=== PATIENT | female | born 1955 | race Two or more races ===

== ENCOUNTER 2017-03-28 07:00 | Day surgery (SDC) | payer OTHER ==
[~2017-03-28 07:00] MED LIST: ASPIR 8181 MG; BITREX PO; ENOXAPARIN40 MG/0.4; GLYCOTROL CAPS1 EACH IM; INTESTINEX680 MG; LOSARTAN POTASS50 MG; OXICONAZOLE NIT30 GM; POLY119PG; SIMVASTATIN40 MG
== END 2017-03-28 13:00 | disposition home or self-care (01) ==
LOC: AMB-ENDOS 07:00
DX: K57.30 Diverticulosis of large intestine without perforation or abscess without bleeding (principal); K64.1 Second degree hemorrhoids

== ENCOUNTER 2017-04-24 14:02 | Inpatient (IN) | payer OTHER ==
[~2017-04-24] VITALS: Ht 149.9 cm; Wt 70.3 kg
[2017-04-24] MEDS ORDERED: ZOCOR20 MG PO (14:47)
[2017-04-24] MEDS ORDERED: SINGULAIR10 MG PO (14:48)
[2017-04-24] MEDS ORDERED: ECOTRIN81 MG PO (14:48)
[2017-04-24] MEDS ORDERED: NEURIN (14:49)
[2017-04-24] MEDS ORDERED: MAXIMUM D310000 UNIT PO (14:49)
[2017-04-24] MEDS ORDERED: ALBUTEROL0.63 MG/3 IH (14:50)
[2017-04-24] MEDS ORDERED: CIPRO PO (14:50)
== END 2017-05-02 16:01 | disposition home or self-care (01) | DRG 336 ==
LOC: O/R 04-30 05:20 → SURH 04-30 05:20
PROVIDERS: Colon & Rectal Surgery
PROC: 3E0F7GC Introduction of Other Therapeutic Substance into Respiratory Tract, Via Natural or Artificial Opening (ICD-10-PCS; 2017-04-30)
PROC: 0DN84ZZ Release Small Intestine, Percutaneous Endoscopic Approach (ICD-10-PCS; principal; 2017-04-30 19:15)
DX: K57.32 Diverticulitis of large intestine without perforation or abscess without bleeding (principal); N82.3 Fistula of vagina to large intestine; D68.62 Lupus anticoagulant syndrome; E72.12 Methylenetetrahydrofolate reductase deficiency; I10 Essential (primary) hypertension; M15.0 Primary generalized (osteo)arthritis; J45.909 Unspecified asthma, uncomplicated; K57.30 Diverticulosis of large intestine without perforation or abscess without bleeding; K66.0 Peritoneal adhesions (postprocedural) (postinfection); K58.8 Other irritable bowel syndrome

== ENCOUNTER → 2017-05-09 | Emergency (ER) | payer OTHER ==
[~2017-05-09] VITALS: Ht 149.9 cm; Wt 69.4 kg
[~2017-05-09] MED LIST changes: +ALBUTEROL0.63 MG/3 IH; +CIPRO PO; +ECOTRIN81 MG PO; +MAXIMUM D310000 UNIT PO; +NEURIN; +SINGULAIR10 MG PO; +ZOCOR20 MG PO
== END | disposition home or self-care (01) ==
LOC: ER 03:44
DX: K57.90 Diverticulosis of intestine, part unspecified, without perforation or abscess without bleeding (principal); R10.84 Generalized abdominal pain

== ENCOUNTER 2022-06-29 14:57 | Emergency (ER) | payer OTHER ==
[~2022-06-29] VITALS: Ht 149.9 cm; Wt 67.1 kg
[2022-06-29] MEDS ORDERED: SINGULAIR10 MG PO (15:05)
== END 2022-06-29 22:17 | disposition home or self-care (01) ==
LOC: ER 14:57
DX: K52.9 Noninfective gastroenteritis and colitis, unspecified (principal); J45.909 Unspecified asthma, uncomplicated; E78.00 Pure hypercholesterolemia, unspecified; Z88.2 Allergy status to sulfonamides